=== PATIENT | female | born 1970 | race Caucasian/White ===

== ENCOUNTER 2018-08-15 01:27 | Emergency (ER) | payer OTHER ==
[~2018-08-15 01:27] MED LIST: CEPH500 PO; CIPR500 PO; CRUTCH3 USE; FLUC100 PO; HYDACE5 PO; IBUP600 PO; MUPI2TO TOP; OXYACE5T PO; PHENA200 PO; RXSULTRIDS PO; RXTRAM50 PO; SULTRIDS PO; TRAM50 PO; VALACYCLOVIR1000 MG PO; Zovirax400 MG PO
[2018-08-15 06:58] LABS: Anion Gap 9 mmol/L (6-16); Blood Urea Nitrogen 8 mg/dL (8-24); Bun/Creatinine Ratio 13.6 (12.0-20.0); CO2, Blood 22 mmol/L (21-32); Chloride, Blood 107 mmol/L (98-108); Creatinine, Blood 0.59 mg/dL (0.40-1.00); Ethanol (Alcohol), Blood, Med <3 mg/dL; Glomerular Filtration Rate >60 (60-); Glucose, Blood 95 mg/dL (70-99); Potassium, Blood 3.5 mmol/L (3.5-5.5); Sodium, Blood 138 mmol/L (136-145); Troponin I <0.015 ng/mL (0.000-0.040)
[2018-08-15 06:59] LABS: BASOPHILS ABSOLUTE AUTO 0.02 K/mm3 (0.00-0.23); BASOPHILS PERCENT AUTO 0 % (0-2); EOSINOPHILS PERCENT AUTO 1 % (0-6); Hematocrit 39.4 % (33.0-51.0); Hemoglobin 12.9 g/dL (11.5-16.0); IMMATURE GRAN ABSOLUTE AUTO 0.02 K/mm3 (0.00-0.10); IMMATURE GRAN PERCENT AUTO 0 % (0-1); LYMPHOCYTES ABSOLUTE AUTO 2.12 K/mm3 (0.84-5.20); LYMPHOCYTES PERCENT AUTO 21 % (21-46); MONOCYTES ABSOLUTE AUTO 0.63 K/mm3 (0.16-1.47); MONOCYTES PERCENT AUTO 6 % (4-13); Mean Corpuscular HGB 30.6 pg (26.0-34.0); Mean Corpuscular HGB Conc 32.7 g/dL (31.5-36.5); Mean Corpuscular Volume 94 fL (80-100); Mean Platelet Volume 9.1 fL (9.1-12.4); NEUTROPHILS ABSOLUTE AUTO 7.45 K/mm3 (1.96-9.15); NEUTROPHILS PERCENT AUTO 72 % (41-73); Platelet Count 373 K/mm3 (150-400); RDW Coefficient Variation 12.5 % (11.7-14.2); RDW Standard Deviation 43.4 fL (35.1-46.3); Red Blood Cell Count 4.21 M/mm3 (3.80-5.20); White Blood Cell Count 10.34 K/mm3 (4.00-11.30)
== END 2018-08-15 05:50 | disposition home or self-care (01) ==
LOC: ER 01:27
PROVIDERS: Emergency Medicine
DX: I10 Essential (primary) hypertension (principal)
CPT/HCPCS: 74176; 80048; 83690; 84484; 85025; 99284-25; G0480

== ENCOUNTER 2018-12-12 22:47 | Emergency (ER) | payer OTHER ==
[~2018-12-12] VITALS: Ht 167.6 cm; Wt 59.0 kg
[2018-12-13] MEDS ORDERED: Doxycycline Hy100 MG PO (04:05)
== END 2018-12-13 05:08 | disposition home or self-care (01) ==
LOC: ER 22:47
DX: L03.114 Cellulitis of left upper limb (principal); Z88.5 Allergy status to narcotic agent; Z79.899 Other long term (current) drug therapy; F17.210 Nicotine dependence, cigarettes, uncomplicated
CPT/HCPCS: 73080; 93971; 99284-25; A9270-GY

== ENCOUNTER 2019-01-01 11:22 | Emergency (ER) | payer OTHER ==
[~2019-01-01] VITALS: Ht 167.6 cm; Wt 59.0 kg
[~2019-01-01 11:22] MED LIST changes: +Doxycycline Hy100 MG PO
[2019-01-01] MEDS ORDERED: NAPR550 PO (15:30)
== END 2019-01-01 15:40 | disposition home or self-care (01) ==
LOC: ER 11:22
DX: I72.1 Aneurysm of artery of upper extremity (principal); Z88.5 Allergy status to narcotic agent; F17.210 Nicotine dependence, cigarettes, uncomplicated
CPT/HCPCS: 76882; 99283-25

== ENCOUNTER 2019-01-02 16:51 | Observation (INO) | payer OTHER ==
[~2019-01-02 16:51] MED LIST changes: +NAPR550 PO
--- NOTE | 2019-01-02 17:51 | NUR ---
pt arrived to pcu 8 via ambulation, she is a/ox3, flat affect, pleasant and cooperative with care, follows commands well, states she had an injury to her left arm that is swollen, red, and very painful, arm in a sling, denies numbness or tingling to fingers and can move them without diff, lungs are clear t/o, resp even and unlabored, no cough noted, hrr, tele in place running sr per monitor, see strip, no edema noted, ppp+2, cap refill <3sec, vs stable, afebrile, will place iv to right arm, skin c/w/d, except left upper arm, maew, except left arm, florencio, call light in reach. oriented to room layout call system.
--- NOTE | 2019-01-02 18:15 | NUR ---
heart center nurse here to take her to quality lab technician, consents have been signed, 18g was placed to rac by Sandie GUIDO, pt became very tearful when she was being wheeled out, attempted to offer reassurance, but was unable to stop crying.
--- NOTE | 2019-01-02 22:08 | NUR ---
ASSUMED CARE OF PATIENT AT APPROXIMATELY 1910 FROM [facility]. PATIENT ARRIVED TO UNIT VIA PCU STRETCHER. TELE PLACED; NSR ON TELE. PATIENT REPORTS INTIALLY SHE HAS NOT PAIN BUT LATER REPORTS HE HAS PAIN IN HER LEFT ARM ABOVE THE ELBOW AT A 5/10; PATIENT TEARFUL AT TIMES; NO PAIN MEDICATIONS ORDERED AND NO DVT PROPHYLAXIS; CALLED DR. NIX; ORDERS FOR TYLENOL RECIEVED AND A PRN SLEEP AID IF NEEDED; SLING FOR LEFT ARM; AND PATIENT CAN SOAK LEFT ARM FOR PAIN RELIEF; DR. NIX ALSO REPORTED HE WILL NOT BE IN TOMORROW AND ANOTHER DR WILL D/C PATIENT. NO OTHER PAIN MEDICATION TO BE GIVEN; NO FURTHER ORDERS GIVEN. PATIENT WAS FLAT UNTIL 2100; HOB TO 25-30% TO EAT DINNER; TOLERATED WELL. LEFT ARM HAS LUMP THAT WAS PRESENT WHEN CARE WAS ASSUMED AND PATIENT REPORTS HAS BEEN PRESENT SINCE ARRIVAL TO HOSPITAL. FINGERS AND HAND ON LEFT SIDE SLIGHTLY SWOLLEN; UNCHANGED FROM WHEN ASSUMED CARE FROM HEART CENTER. ACCESS THROUGH RIGHT FEMORAL; DRESSING C/D/I; NO S/S OF BLEEDING, HEMATOMA OR BRUISING NOTED. PATIENT EDUCATED NOT TO STAND OR SIT UP WITHOUT STAFF. OXYGEN SATURATON ABOVE 90% ON ROOM AIR. PIV S/L. PATIENT CURRENTLY RESTING IN BED; CALL LIGHT IN REACH; BED IN LOWEST POSISTION; BED ALARM ON; WILL CONTINUE TO MONITOR AND ASSESS UNTIL END OF SHIFT.
--- NOTE | 2019-01-03 06:00 | NUR ---
PATIENT AMBULATED WITH ANOTHER RN NEO Montero AND PCT GEOFFREY Lau WHEN THIS RN WAS ON LUNCH; NO CHANGES TO GROIN SITE. PATIENT SLEPT ABOUT TEN HOURS. VSS. NO OTHER ACUTE CHANGES TO REPORT. WILL CONTINUE TO MONITOR AND ASSESS UNTIL END OF SHIFT.
--- NOTE | 2019-01-03 07:46 | NUR ---
pt laying in bed with eyes closed, responds to nurse, but is not making any effort to make eye contact, or fully wake up, vs stable, groin site is clear and soft, left arm is less swollen, she reports is less painful, lungs are clear t/o, resp even and unlabored, no cough noted, hrr, tele in place running sr per monitor, see strip, no andrés noted, except some swelling to elbow area of left arm but is less swollen than yesterday, florencio irwin call light in reach.
[2019-01-03] MEDS ORDERED: Acetaminophen650 M1 PO (10:23)
[2019-01-03] MEDS ORDERED: NAPR550 PO (10:24)
[2019-01-03] MEDS ORDERED: ASPI81CH PO (10:25)
[2019-01-03] MEDS ORDERED: CLOP75 PO (10:26)
--- NOTE | 2019-01-03 12:08 | NUR ---
PT HAS BEEN DISCHARGED TO HOME, CHARGE NURSE WENT OVER INSTRUCTIONS WITH HER, SHE VERBALIZED UNDERSTANDING, [facility] MED[facility], IV REMOVED INTACT. LEFT VIA AMBULATION WITH NURSE IN ATTENDENCE.
== END 2019-01-03 11:50 | disposition home or self-care (01) ==
LOC: PCU 16:51
PROVIDERS: ADMIT Radiology Diagnostic Radiology
DX: I72.1 Aneurysm of artery of upper extremity (principal); S45.192A Other specified injury of brachial artery, left side, initial encounter; X58.XXXA Exposure to other specified factors, initial encounter; Z88.5 Allergy status to narcotic agent
CPT/HCPCS: 37236; 75710; 99152; 99153; A9270; C1725; C1760; C1769; C1874; C1894; G0378; J0360; J1644; J2250; J3010; J7030; Q9967

== ENCOUNTER 2020-08-29 19:10 | Emergency (ER) | payer OTHER ==
[~2020-08-29] VITALS: Ht 167.6 cm; Wt 61.2 kg
[~2020-08-29 19:10] MED LIST changes: +ASPI81CH PO; +Acetaminophen650 M1 PO; +CLOP75 PO
[2020-08-29] MEDS ORDERED: Cyclobenzaprine5 MG PO (20:25)
== END 2020-08-29 20:34 | disposition home or self-care (01) ==
LOC: ER 19:10
DX: M54.32 Sciatica, left side (principal); F17.210 Nicotine dependence, cigarettes, uncomplicated; Z88.5 Allergy status to narcotic agent; Z79.02 Long term (current) use of antithrombotics/antiplatelets; Z79.82 Long term (current) use of aspirin; Z79.899 Other long term (current) drug therapy
CPT/HCPCS: 99283; A9270

== ENCOUNTER 2020-09-18 18:43 | Emergency (ER) | payer OTHER ==
[~2020-09-18] VITALS: Ht 167.6 cm; Wt 61.2 kg
[~2020-09-18 18:43] MED LIST changes: +Cyclobenzaprine5 MG PO
[2020-09-18 21:06] LABS: BASOPHILS ABSOLUTE AUTO 0.02 K/mm3 (0.00-0.23); BASOPHILS PERCENT AUTO 0 % (0-2); EOSINOPHILS ABSOLUTE AUTO 0.23 K/mm3 (0.00-0.68); EOSINOPHILS PERCENT AUTO 3 % (0-6); Hematocrit 37.7 % (33.0-51.0); Hemoglobin 12.5 g/dL (11.5-16.0); IMMATURE GRAN ABSOLUTE AUTO 0.01 K/mm3 (0.00-0.10); IMMATURE GRAN PERCENT AUTO 0 % (0-1); LYMPHOCYTES ABSOLUTE AUTO 2.34 K/mm3 (0.84-5.20); LYMPHOCYTES PERCENT AUTO 32 % (21-46); MONOCYTES ABSOLUTE AUTO 0.76 K/mm3 (0.16-1.47); MONOCYTES PERCENT AUTO 10 % (4-13); Mean Corpuscular HGB 29.5 pg (26.0-34.0); Mean Corpuscular HGB Conc 33.2 g/dL (31.5-36.5); Mean Corpuscular Volume 89 fL (80-100); Mean Platelet Volume 8.8 fL (9.1-12.4); NEUTROPHILS ABSOLUTE AUTO 4.05 K/mm3 (1.96-9.15); NEUTROPHILS PERCENT AUTO 55 % (41-73); Platelet Count 369 K/mm3 (150-400); RDW Coefficient Variation 12.2 % (11.7-14.2); RDW Standard Deviation 39.7 fL (35.1-46.3); Red Blood Cell Count 4.24 M/mm3 (3.80-5.20); White Blood Cell Count 7.41 K/mm3 (4.00-11.30)
[2020-09-18 21:24] LABS: Alanine Aminotransfer (ALT/SGP 125 U/L (12-78); Albumin, Blood 3.5 g/dL (3.4-5.0); Albumin/Globulin Ratio 0.9 (0.8-1.8); Alk Phos 79 U/L (50-136); Anion Gap 5 mmol/L (6-16); Aspartate Aminotrans (AST/SGOT 68 U/L (12-37); Bilirubin, Total 0.3 mg/dL (0.1-1.0); Blood Urea Nitrogen 14 mg/dL (8-24); Bun/Creatinine Ratio 18.7 (12.0-20.0); CO2, Blood 27 mmol/L (21-32); Calcium, Blood 8.6 mg/dL (8.5-10.1); Chloride, Blood 108 mmol/L (98-108); Creatinine, Blood 0.75 mg/dL (0.40-1.00); Globulin, Blood 4.1 g/dL (2.2-4.0); Glomerular Filtration Rate >60 (60-); Glucose, Blood 132 mg/dL (70-99); Potassium, Blood 3.6 mmol/L (3.5-5.5); Sodium, Blood 140 mmol/L (136-145); Total Protein, Blood 7.6 g/dL (6.4-8.2)
[2020-09-18 23:13] LABS: CPK Creatine Kinase 58 U/L (26-193)
== END 2020-09-18 23:43 | disposition home or self-care (01) ==
LOC: ER 18:43
PROVIDERS: Physician Assistant
DX: M79.662 Pain in left lower leg (principal); F17.210 Nicotine dependence, cigarettes, uncomplicated; Z88.5 Allergy status to narcotic agent; Z79.899 Other long term (current) drug therapy
CPT/HCPCS: 36415; 80053; 82550; 85025; 93005; 93010; 93971; 99284-25

== ENCOUNTER 2022-05-11 23:06 | Emergency (ER) | payer OTHER ==
[~2022-05-11] VITALS: Ht 167.6 cm; Wt 59.0 kg
[2022-05-12] MEDS ORDERED: Morphine Sulfat15 MG PO (02:08)
[2022-05-12] MEDS ORDERED: IBUP800 PO (02:08)
[2022-05-12] MEDS ORDERED: ONDA4ODT MM (02:24)
== END 2022-05-12 03:20 | disposition home or self-care (01) ==
LOC: ER 23:06
DX: S52.612A Displaced fracture of left ulna styloid process, initial encounter for closed fracture (principal); S52.502A Unspecified fracture of the lower end of left radius, initial encounter for closed fracture; F17.210 Nicotine dependence, cigarettes, uncomplicated; W01.0XXA Fall on same level from slipping, tripping and stumbling without subsequent striking against object, initial encounter
CPT/HCPCS: 73100; 73110; J1170; J2405

== ENCOUNTER 2022-06-02 19:12 | Inpatient (IN) | payer OTHER ==
[~2022-06-02] VITALS: Ht 172.7 cm; Wt 68.7 kg
[~2022-06-02 19:12] MED LIST changes: +IBUP800 PO; +Morphine Sulfat15 MG PO; +ONDA4ODT MM
[2022-06-02 20:32] LABS: Influenza B, PCR NEGATIVE (NEGATIVE); Resp Syncytial Virus, PCR NEGATIVE (NEGATIVE); SARS-Cov-2 (COVID-19) PCR, MMC NEGATIVE (NEGATIVE)
[2022-06-02 20:39] LABS: Influenza A, PCR POSITIVE (NEGATIVE)
[2022-06-02 20:58] LABS: BASOPHILS ABSOLUTE AUTO 0.03 K/mm3 (0.00-0.23); BASOPHILS PERCENT AUTO 0 % (0-2); EOSINOPHILS ABSOLUTE AUTO 0.01 K/mm3 (0.00-0.68); EOSINOPHILS PERCENT AUTO 0 % (0-6); Hematocrit 40.8 % (33.0-51.0); Hemoglobin 13.2 g/dL (11.5-16.0); IMMATURE GRAN ABSOLUTE AUTO 0.03 K/mm3 (0.00-0.10); IMMATURE GRAN PERCENT AUTO 0 % (0-1); LYMPHOCYTES ABSOLUTE AUTO 0.78 K/mm3 (0.84-5.20); LYMPHOCYTES PERCENT AUTO 9 % (21-46); MONOCYTES PERCENT AUTO 12 % (4-13); Mean Corpuscular HGB 30.3 pg (26.0-34.0); Mean Corpuscular HGB Conc 32.4 g/dL (31.5-36.5); Mean Corpuscular Volume 94 fL (80-100); Mean Platelet Volume 9.9 fL (9.1-12.4); NEUTROPHILS ABSOLUTE AUTO 6.53 K/mm3 (1.96-9.15); NEUTROPHILS PERCENT AUTO 78 % (41-73); Platelet Count 426 K/mm3 (150-400); RDW Coefficient Variation 13.6 % (11.7-14.2); RDW Standard Deviation 45.6 fL (35.1-46.3); Red Blood Cell Count 4.35 M/mm3 (3.80-5.20); White Blood Cell Count 8.38 K/mm3 (4.00-11.30)
[2022-06-02 21:24] LABS: Albumin, Blood 2.9 g/dL (3.4-5.0); Albumin/Globulin Ratio 0.7 (0.8-1.8); Bilirubin, Total 0.9 mg/dL (0.1-1.0); Calcium, Blood 8.7 mg/dL (8.5-10.1); Creatinine, Blood 0.88 mg/dL (0.40-1.00); Globulin, Blood 4.3 g/dL (2.2-4.0); Potassium, Blood 4.5 mmol/L (3.5-5.5); Total Protein, Blood 7.2 g/dL (6.4-8.2)
[2022-06-03 05:51] LABS: BASOPHILS ABSOLUTE AUTO 0.04 K/mm3 (0.00-0.23); BASOPHILS PERCENT AUTO 1 % (0-2); EOSINOPHILS PERCENT AUTO 0 % (0-6); Hematocrit 35.8 % (33.0-51.0); Hemoglobin 11.8 g/dL (11.5-16.0); IMMATURE GRAN ABSOLUTE AUTO 0.02 K/mm3 (0.00-0.10); IMMATURE GRAN PERCENT AUTO 0 % (0-1); LYMPHOCYTES ABSOLUTE AUTO 1.06 K/mm3 (0.84-5.20); LYMPHOCYTES PERCENT AUTO 14 % (21-46); MONOCYTES ABSOLUTE AUTO 0.98 K/mm3 (0.16-1.47); MONOCYTES PERCENT AUTO 13 % (4-13); Mean Corpuscular HGB 30.1 pg (26.0-34.0); Mean Corpuscular Volume 91 fL (80-100); Mean Platelet Volume 9.6 fL (9.1-12.4); NEUTROPHILS ABSOLUTE AUTO 5.61 K/mm3 (1.96-9.15); NEUTROPHILS PERCENT AUTO 73 % (41-73); Platelet Count 404 K/mm3 (150-400); RDW Coefficient Variation 13.8 % (11.7-14.2); RDW Standard Deviation 45.1 fL (35.1-46.3); Red Blood Cell Count 3.92 M/mm3 (3.80-5.20); White Blood Cell Count 7.71 K/mm3 (4.00-11.30)
[2022-06-03 06:21] LABS: Albumin, Blood 2.7 g/dL (3.4-5.0); Albumin/Globulin Ratio 0.7 (0.8-1.8); Bun/Creatinine Ratio 16.3 (12.0-20.0); Calcium, Blood 8.2 mg/dL (8.5-10.1); Creatinine, Blood 0.92 mg/dL (0.40-1.00); Globulin, Blood 3.8 g/dL (2.2-4.0); Potassium, Blood 4.4 mmol/L (3.5-5.5); Total Protein, Blood 6.5 g/dL (6.4-8.2)
--- NOTE | 2022-06-03 08:00 | NUR ---
pt laying in bed asleep, wakes easily, states she has pain with cough, using 2 liters for comfort, she feels sob at times, lungs are tight and wheezing t/o, resp even and unlabored, no cough noted, hrr, tele in place running sr to st per monitor in the low 100's, no edema noted, ppp+2, cap refill<3sec, vs stable, afebrile, iv to right ac, site is clear and patent, btx4, abd flat soft nontender, voids without diff, skin c/w/d, maew, florencio, call light in reach.
--- NOTE | 2022-06-03 18:21 | NUR ---
pt has been sleeping when not being disturbed, no acute changes this shift. family has been in room, call light in reach.
--- NOTE | 2022-06-03 18:42 | NUR ---
pt more awake this evening, looks better, she reports feeling a bit better, have bsc set up for obtaining a urine sample, s.o. in room with her most of the day, call light in reach, denies further needs at this time.
[2022-06-03 21:02] LABS: U Amphetamine Screen DETECTED; U Barbituate Screen Not Detected; U Benzodiazapine Screen Not Detected; U Buprenorphine Screen Not Detected; U Cannabinoids Screen Not Detected; U Cocaine Screen Not Detected; U Methadone Screen Not Detected; U Methamphetamine Screen DETECTED; U Opiates Screen Not Detected; U Oxycodone Screen Not Detected; U Phencyclidine Screen Not Detected; U Propoxyphene Screen Not Detected
--- NOTE | 2022-06-04 04:01 | NUR ---
SHIFT SUMMARY 51 YR F ADMITTED ON 06/02/22 FOR CHF. FULL CODE. NO ACUTE CHANGES THIS SHIFT. PT HAS SLEPT FOR MOST OF THIS SHIFT AND HAS ONLY WOKE UP FOR MEDS AND TO USE THE BSC. URINE SAMPLE WAS OBTAINED AND SENT TO LAB . RESULTS ARE POSITIVE FOR AMPHETAMINES AND METHAMPHETAMINE. BED IS IN LOW POSITION AND CALL LIGHT WITHIN REACH.
[2022-06-04 05:05] LABS: BASOPHILS ABSOLUTE AUTO 0.02 K/mm3 (0.00-0.23); BASOPHILS PERCENT AUTO 0 % (0-2); EOSINOPHILS ABSOLUTE AUTO 0.03 K/mm3 (0.00-0.68); EOSINOPHILS PERCENT AUTO 1 % (0-6); Hematocrit 36.9 % (33.0-51.0); Hemoglobin 12.1 g/dL (11.5-16.0); IMMATURE GRAN ABSOLUTE AUTO 0.02 K/mm3 (0.00-0.10); IMMATURE GRAN PERCENT AUTO 0 % (0-1); LYMPHOCYTES ABSOLUTE AUTO 1.32 K/mm3 (0.84-5.20); LYMPHOCYTES PERCENT AUTO 22 % (21-46); MONOCYTES ABSOLUTE AUTO 0.76 K/mm3 (0.16-1.47); MONOCYTES PERCENT AUTO 13 % (4-13); Mean Corpuscular HGB 29.6 pg (26.0-34.0); Mean Corpuscular HGB Conc 32.8 g/dL (31.5-36.5); Mean Corpuscular Volume 90 fL (80-100); Mean Platelet Volume 9.5 fL (9.1-12.4); NEUTROPHILS ABSOLUTE AUTO 3.78 K/mm3 (1.96-9.15); NEUTROPHILS PERCENT AUTO 64 % (41-73); Platelet Count 407 K/mm3 (150-400); RDW Coefficient Variation 14.1 % (11.7-14.2); RDW Standard Deviation 45.1 fL (35.1-46.3); Red Blood Cell Count 4.09 M/mm3 (3.80-5.20); White Blood Cell Count 5.93 K/mm3 (4.00-11.30)
[2022-06-04 05:35] LABS: Albumin, Blood 2.6 g/dL (3.4-5.0); Albumin/Globulin Ratio 0.7 (0.8-1.8); Bilirubin, Total 0.5 mg/dL (0.1-1.0); Bun/Creatinine Ratio 17.2 (12.0-20.0); Calcium, Blood 7.9 mg/dL (8.5-10.1); Creatinine, Blood 0.87 mg/dL (0.40-1.00); Globulin, Blood 3.5 g/dL (2.2-4.0); Potassium, Blood 3.3 mmol/L (3.5-5.5); Total Protein, Blood 6.1 g/dL (6.4-8.2)
--- NOTE | 2022-06-04 18:33 | NUR ---
EVENINGNOTE PT RESTING ALL DAY. EASILY AWAKENS AND IS COOPERATIVE WITH CARE. SHOWER HAS BEEN SET UP FOR HER ALL DAY. SHE HAS PUT IT OFF. STARTED ON METPROLOL FOR HEART RATE CONTROL. HER HR WAS TO HIGH FOR AN ECHO. HEART RATE DECREASED INTO THE LOW 90'S EARLY AFTERNOON. ATTEMPTED TO REACH THE SALESPERSON HANDBAGS. UNABLE TO REACH HER. CALLED NURSING ENVIRONMENTAL HEALTH AND SAFETY LEADER. PT HAS VOIDED 3000ML TODAY PER BSC. SHE STATED THAT IT HURTS TO BREATH WHEN SHE'S UP. SHE WAS VAGUE IN DESCRIBING THE NATURE OF THE "PAIN" OR LOCATION.AUSCULTATION OF HER LUNGS WAS COURSE T/O AND DIM IN THE BASES BOTH POSTERIOR/ANTERIOR EAGLE. SR/ST WITH BBB. SKIN PALE, DUSKY LOOKING. SKIN WARM AND DRY. RA. VOICE CLEAR, STRONG. LEFT UE CAST DRY AND INTACT. CAP REILL TO FINGERS BRISK. SHE DENIED DISCOMFORT FROM THE FRACTURE. CONTINUE POC.
[2022-06-04 23:40] LABS: Magnesium, Blood 1.7 mg/dL (1.6-2.4); Potassium, Blood 3.6 mmol/L (3.5-5.5)
--- NOTE | 2022-06-05 07:27 | NUR ---
A/OX4; CALM AND COOPERATIVE. IND IN ROOM. BOUCHRA CUEVAS. TELE: BBB WITH INVERTED T-WAVE AND HR IN 90s. 16 BEATS V-TACH AT 2300 (PATIENT WAS ASLEEP); REPORTED TO MD. STAT K AND MG CHECKED PER ORDERS; LABWORK WNL. VSS AT THIS TIME. DENIES CHEST PAIN. FLU + PRECAUTIONS MAINTAINED. LUNGS TIGHT /DIMINISHED WITH EXP WHEEZE IN UPPER LOBES. SPO2 LOW 90s ON ROOM AIR. SLEEP PROMOTED. CALL LIGHT IN REACH; ENCOURAGED TO MAKE NEEDS KNOWN.
--- NOTE | 2022-06-05 16:52 | NUR ---
SHIFT SUMMARY: PATIENT A&OX4. HAS FLAT AFFECT. PLEASANT AND COOPERATIVE c CARE. USES CALL LIGHT APPROPRIATELY AND ABLE TO ADVOCATE FOR HER NEEDS. DENIES CP/CHEST DISCOMFORT. PATIENT ON TELE, AND HAS BEEN SR IN HIGH 80'S BPM. DENIES SOB. PATIENT ON RA c SPO2 ABOVE 92% T/O SHIFT. LUNGS HAS INS. WHEEZES T/O TO AUSCULTATION. AMBULATES TO BATHROOM AND BACK IN BED INDEPENDENTLY. PATIENT HAS BEEN RESTING IN BED T/O SHIFT. VITAL SIGNS REVIEWED. IV TO VEDA SALINE LOCKED. CALL LIGHT IN REACH.
--- NOTE | 2022-06-06 06:04 | NUR ---
A/OX4; CALM AND COOPERATIVE. IND IN ROOM. CAST LUE. IV RUE. C/O 01/18 LEFT ELBOW PAIN (REQUESTING CAST REMOVAL); PRN TYLENOL GIVEN. NOT HELPFUL PER PATIENT; CALLED MD FOR PAIN MED REQUEST AND TO REPORT HTN (S/P SCHEDULED METOPROLOL ADMINISTRATION) BP 148/109 WITH HR OF 100. PRN HYDRALAZINE ORDER OBTAINED AND GIVEN; BP 132/85 WITH HR OF 97 AFTER ADMINISTRATION. PRN TORADOL ORDERED AND GIVEN; PAIN RELIEVED TELE: ST WITH HR 90s TO 100. FLU + PRECAUTIONS MAINTAINED. LUNGS TIGHT /DIMINISHED WITH EXP WHEEZE IN UPPER LOBES. SPO2 90s ON ROOM AIR. SLEEP PROMOTED. CALL LIGHT IN REACH; ENCOURAGED TO MAKE NEEDS KNOWN.
[2022-06-06 11:32] LABS: Albumin, Blood 2.7 g/dL (3.4-5.0); Anion Gap 6 mmol/L (6-16); Blood Urea Nitrogen 23 mg/dL (8-24); Bun/Creatinine Ratio 26.5 (12.0-20.0); CO2, Blood 26 mmol/L (21-32); Calcium, Blood 8.5 mg/dL (8.5-10.1); Chloride, Blood 107 mmol/L (98-108); Creatinine, Blood 0.87 mg/dL (0.40-1.00); Glomerular Filtration Rate 80 (60-); Glucose, Blood 112 mg/dL (70-99); Phosphorus, Blood 3.9 mg/dL (2.5-4.9); Potassium, Blood 4.2 mmol/L (3.5-5.5); Sodium, Blood 139 mmol/L (136-145)
[2022-06-06] MEDS ORDERED: Acetaminophen650 M1 PO (14:26)
[2022-06-06] MEDS ORDERED: LOSA25 PO (14:27)
[2022-06-06] MEDS ORDERED: FURO40 PO (14:28)
[2022-06-06] MEDS ORDERED: METO25 PO (14:30)
[2022-06-06] MEDS ORDERED: OSEL75CA PO (14:36)
--- NOTE | 2022-06-06 15:35 | NUR ---
NOTES/DISCHARGE SUMMARY: PATIENT A&OX4. CALM, PLEASANT AND COOPERATIVE c CARE. USES CALL LIGHT APPROPRIATELY AND ABLE TO ADVOCATE FOR HER NEEDS. NO NEW CHANGES THIS SHIFT. PATIENT STILL ON ISOLATION DROPLET FOR FLU. PATIENT DENIES CP/CHEST DISCOMFORT. PATIENT ON TELE, SR IN THE 100'S BPM PER FLESHING MACHINE OPERATORMINA KAPLAN. DENIES SOB. PATIENT ON RA c SPO2 ABOVE 95%. LUNGS CLEAR T/O TO AUSCULTATION. NO FEVER. RECEIVED SCHEDULED MEDS THIS SHIFT. IV TO VEDA WAS DC'D. PATIENT DISCHARGE HOME. DISCHARGE INSTRUCTIONS PACKET GIVEN TO PATIENT. EDUCATE PATIENT REGARDING ADMITTING DX, S/S, TX, METH USE, AND NEW PRESCRIBED MEDICATIONS. PATIENT STATED UNDERSTANDING AND NO FURTHER QUESTIONS. RX WAS FAXED TO PATIENT PREFERRED PHARMACY ([facility]). ALL PATIENT PERSONAL BELONGINGS WERE SENT HOME WITH THE PATIENT. PATIENT TRANSPORTED VIA WHEELCHAIR BY DENTURE PACKER STAFF [place] TO TO PATIENT SIGNIFICANT OTHER'S VEHICLE.
== END 2022-06-06 15:20 | disposition home or self-care (01) | DRG 193 ==
LOC: ER 19:12 → MEDS 19:13 → ER 06-03 04:39 → MEDS 06-03 05:16
PROVIDERS: Family Medicine; Internal Medicine; Nurse Practitioner Acute Care; Physician Assistant; Student in an Organized Health Care Education/Training Program; ADMIT Family Medicine
DX: J10.1 Influenza due to other identified influenza virus with other respiratory manifestations (principal); I50.21 Acute systolic (congestive) heart failure; I42.0 Dilated cardiomyopathy; I42.7 Cardiomyopathy due to drug and external agent; J91.8 Pleural effusion in other conditions classified elsewhere; F15.10 Other stimulant abuse, uncomplicated; F17.210 Nicotine dependence, cigarettes, uncomplicated; R77.8 Other specified abnormalities of plasma proteins; R00.0 Tachycardia, unspecified; E87.6 Hypokalemia; R94.5 Abnormal results of liver function studies; I44.7 Left bundle-branch block, unspecified; R74.01 Elevation of levels of liver transaminase levels; Z20.822 Contact with and (suspected) exposure to COVID-19; Z87.81 Personal history of (healed) traumatic fracture; Z98.890 Other specified postprocedural states; Z98.51 Tubal ligation status; I25.2 Old myocardial infarction; Z88.5 Allergy status to narcotic agent; Z79.899 Other long term (current) drug therapy; Z79.891 Long term (current) use of opiate analgesic
CPT/HCPCS: 0241U; 36415; 71046; 71260; 80053; 80069; 83735; 83880; 84132; 84484; 85025; 85379; 93005; 93010; 93306; 94640; 94664; 94760; 96361; 96374; 96375; 99285-25; A9270; G0378; G0480; J0360; J1650; J1885; J1940; J3010; J7030; Q9967

== ENCOUNTER 2022-08-04 08:00 | Emergency (ER) | payer OTHER ==
[~2022-08-04] VITALS: Ht 167.6 cm; Wt 61.2 kg
[~2022-08-04 08:00] MED LIST changes: +FURO20 PO; +FURO40 PO; +LOSA25 PO; +METO25 PO; +OSEL75CA PO
[2022-08-04 09:40] LABS: BASOPHILS ABSOLUTE AUTO 0.05 K/mm3 (0.00-0.23); BASOPHILS PERCENT AUTO 0 % (0-2); EOSINOPHILS ABSOLUTE AUTO 0.13 K/mm3 (0.00-0.68); EOSINOPHILS PERCENT AUTO 1 % (0-6); Hematocrit 37.2 % (33.0-51.0); Hemoglobin 12.1 g/dL (11.5-16.0); IMMATURE GRAN ABSOLUTE AUTO 0.05 K/mm3 (0.00-0.10); IMMATURE GRAN PERCENT AUTO 0 % (0-1); LYMPHOCYTES ABSOLUTE AUTO 2.28 K/mm3 (0.84-5.20); LYMPHOCYTES PERCENT AUTO 16 % (21-46); MONOCYTES ABSOLUTE AUTO 1.61 K/mm3 (0.16-1.47); MONOCYTES PERCENT AUTO 11 % (4-13); Mean Corpuscular HGB 28.5 pg (26.0-34.0); Mean Corpuscular HGB Conc 32.5 g/dL (31.5-36.5); Mean Corpuscular Volume 88 fL (80-100); Mean Platelet Volume 9.3 fL (9.1-12.4); NEUTROPHILS ABSOLUTE AUTO 10.63 K/mm3 (1.96-9.15); NEUTROPHILS PERCENT AUTO 72 % (41-73); Platelet Count 510 K/mm3 (150-400); RDW Coefficient Variation 13.9 % (11.7-14.2); RDW Standard Deviation 44.6 fL (35.1-46.3); Red Blood Cell Count 4.25 M/mm3 (3.80-5.20); White Blood Cell Count 14.75 K/mm3 (4.00-11.30)
[2022-08-04 10:00] LABS: Influenza A, PCR NEGATIVE (NEGATIVE); Influenza B, PCR NEGATIVE (NEGATIVE); Resp Syncytial Virus, PCR NEGATIVE (NEGATIVE); SARS-Cov-2 (COVID-19) PCR, MMC NEGATIVE (NEGATIVE)
[2022-08-04 10:12] LABS: Albumin, Blood 3.1 g/dL (3.4-5.0); Albumin/Globulin Ratio 0.7 (0.8-1.8); Bilirubin, Total 0.8 mg/dL (0.1-1.0); Bun/Creatinine Ratio 22.6 (12.0-20.0); Creatinine, Blood 0.84 mg/dL (0.40-1.00); Globulin, Blood 4.4 g/dL (2.2-4.0); Potassium, Blood 4.1 mmol/L (3.5-5.5); Total Protein, Blood 7.5 g/dL (6.4-8.2)
[2022-08-04 10:26] LABS: Source, Urine Clean Catch
[2022-08-04 10:31] LABS: Appearance, Urine Clear (Clear); Bilirubin, Urine Neg (Neg); Blood, Urine Neg (Neg); Color, Urine Yellow (P-Yellow); Glucose Qualitative, Urine Neg (Neg); Ketones, Urine Neg (Neg); Leukocyte Esterase, Urine 1+ (Neg); Nitrite, Urine Pos (Neg); Protein, Urine 1+ (Neg); Urobilinogen, Urine NORM (Normal)
[2022-08-04 10:47] LABS: U Amphetamine Screen DETECTED; U Barbituate Screen Not Detected; U Benzodiazapine Screen Not Detected; U Buprenorphine Screen Not Detected; U Cannabinoids Screen Not Detected; U Cocaine Screen Not Detected; U Methadone Screen Not Detected; U Methamphetamine Screen DETECTED; U Opiates Screen Not Detected; U Oxycodone Screen Not Detected; U Phencyclidine Screen Not Detected; U Propoxyphene Screen Not Detected
[2022-08-04] MEDS ORDERED: ALBU90OI INH (10:49)
[2022-08-04] MEDS ORDERED: BENZ100A PO (10:49)
[2022-08-04] MEDS ORDERED: PRED20 PO (10:49)
[2022-08-04 10:52] LABS: Bacteria Many /hpf; Squamous Epithelial Cells Few /hpf (Few); White Blood Cells, Urine 25-50 /hpf (0-5)
[2022-08-04] MEDS ORDERED: CEPH500 PO (14:05)
== END 2022-08-04 11:41 | disposition home or self-care (01) ==
LOC: ER 08:00
PROVIDERS: Emergency Medicine
DX: J40 Bronchitis, not specified as acute or chronic (principal); I42.0 Dilated cardiomyopathy; F15.11 Other stimulant abuse, in remission; N39.0 Urinary tract infection, site not specified; I50.21 Acute systolic (congestive) heart failure; F17.210 Nicotine dependence, cigarettes, uncomplicated; Z88.5 Allergy status to narcotic agent; Z79.899 Other long term (current) drug therapy; Z20.822 Contact with and (suspected) exposure to COVID-19
CPT/HCPCS: 0241U; 36415; 71045; 80053; 81001; 83880; 85025; 87077; 87086; 87186; 93005; 93010; J7030

== ENCOUNTER 2022-08-08 06:34 | Emergency (ER) | payer OTHER ==
[~2022-08-08] VITALS: Ht 167.6 cm; Wt 63.5 kg
[~2022-08-08 06:34] MED LIST changes: +ALBU90OI INH; +BENZ100A PO; +PRED20 PO
[2022-08-08 07:39] LABS: Source, Urine Clean Catch
[2022-08-08 07:43] LABS: Appearance, Urine Clear (Clear); Bilirubin, Urine Neg (Neg); Blood, Urine Neg (Neg); Color, Urine Yellow (P-Yellow); Glucose Qualitative, Urine Neg (Neg); Ketones, Urine Neg (Neg); Leukocyte Esterase, Urine 1+ (Neg); Nitrite, Urine Neg (Neg); Protein, Urine 2+ (Neg); Urobilinogen, Urine NORM (Normal)
[2022-08-08 07:55] LABS: Bacteria Few /hpf; Red Blood Cells, Urine 0-2 /hpf (0-2); Squamous Epithelial Cells Few /hpf (Few); Transitional Epithelial Cells Few /hpf (0-Rare)
[2022-08-08 07:57] LABS: U Amphetamine Screen DETECTED; U Barbituate Screen Not Detected; U Benzodiazapine Screen Not Detected; U Buprenorphine Screen Not Detected; U Cannabinoids Screen Not Detected; U Cocaine Screen Not Detected; U Methadone Screen Not Detected; U Methamphetamine Screen DETECTED; U Opiates Screen Not Detected; U Oxycodone Screen Not Detected; U Phencyclidine Screen Not Detected; U Propoxyphene Screen Not Detected
[2022-08-08 08:19] LABS: Albumin, Blood 2.8 g/dL (3.4-5.0); Albumin/Globulin Ratio 0.7 (0.8-1.8); Bilirubin, Total 0.7 mg/dL (0.1-1.0); Calcium, Blood 8.4 mg/dL (8.5-10.1); Creatinine, Blood 0.8 mg/dL (0.40-1.00); Potassium, Blood 5.1 mmol/L (3.5-5.5); Total Protein, Blood 6.8 g/dL (6.4-8.2)
== END 2022-08-08 09:35 | disposition home or self-care (01) ==
LOC: ER 06:34
PROVIDERS: Emergency Medicine
DX: R60.9 Edema, unspecified (principal); F15.10 Other stimulant abuse, uncomplicated; N39.0 Urinary tract infection, site not specified; B96.20 Unspecified Escherichia coli [E. coli] as the cause of diseases classified elsewhere; Z88.5 Allergy status to narcotic agent; Z79.899 Other long term (current) drug therapy; Z79.52 Long term (current) use of systemic steroids; I25.2 Old myocardial infarction; I50.21 Acute systolic (congestive) heart failure; F17.210 Nicotine dependence, cigarettes, uncomplicated
CPT/HCPCS: 36415; 71045; 80053; 81001; 83880; 87086; 96374; 99284-25; J1940

== ENCOUNTER 2022-10-05 13:46 | Emergency (ER) | payer OTHER ==
[~2022-10-05] VITALS: Ht 165.1 cm; Wt 61.2 kg
[2022-10-05 14:10] VITALS: BP 179/103
[2022-10-05] MEDS ORDERED: Lasix20 MG PO (14:14)
[2022-10-05] MEDS ORDERED: ELIQUIS5 M2 PO (14:14)
[2022-10-05] MEDS ORDERED: LOSARTAN POTAS100 M1 PO (14:14)
[2022-10-05] MEDS ORDERED: Coreg25 MG PO (14:14)
[2022-10-05] MEDS ORDERED: SPIR50 PO (14:14)
== END 2022-10-05 14:15 | disposition home or self-care (01) ==
LOC: ER 13:46
DX: Z76.0 Encounter for issue of repeat prescription (principal); Z88.5 Allergy status to narcotic agent; Z79.899 Other long term (current) drug therapy; Z79.52 Long term (current) use of systemic steroids; I25.2 Old myocardial infarction; I50.21 Acute systolic (congestive) heart failure; F17.210 Nicotine dependence, cigarettes, uncomplicated
CPT/HCPCS: 99281

== ENCOUNTER 2022-12-11 16:55 | Emergency (ER) | payer OTHER ==
[~2022-12-11] VITALS: Ht 165.1 cm; Wt 61.2 kg
[~2022-12-11 16:55] MED LIST changes: +Coreg25 MG PO; +ELIQUIS5 M2 PO; +LOSARTAN POTAS100 M1 PO; +Lasix20 MG PO; +SPIR50 PO
[2022-12-11 17:07] VITALS: BP 178/117
[2022-12-11] MEDS ORDERED: Coreg25 MG PO (17:12)
[2022-12-11] MEDS ORDERED: Aldactone50 MG PO (17:12)
[2022-12-11] MEDS ORDERED: ELIQUIS5 M2 PO (17:12)
[2022-12-11] MEDS ORDERED: LOSA50 PO (17:12)
[2022-12-11] MEDS ORDERED: Lasix20 MG PO (17:12)
== END 2022-12-11 17:14 | disposition home or self-care (01) ==
LOC: ER 16:55
DX: Z76.0 Encounter for issue of repeat prescription (principal); I25.2 Old myocardial infarction; I50.21 Acute systolic (congestive) heart failure; F17.210 Nicotine dependence, cigarettes, uncomplicated; Z88.5 Allergy status to narcotic agent; Z79.01 Long term (current) use of anticoagulants; Z79.52 Long term (current) use of systemic steroids; Z79.899 Other long term (current) drug therapy
CPT/HCPCS: 99281

== ENCOUNTER 2024-02-03 01:44 | Emergency (ER) | payer OTHER ==
[~2024-02-03] VITALS: Ht 165.1 cm; Wt 69.4 kg
[~2024-02-03 01:44] MED LIST changes: +Aldactone50 MG PO; +LOSA50 PO
[2024-02-03 02:03] VITALS: BP 141/95
[2024-02-03] MEDS ORDERED: Ibuprofen 600 MG Tab PO ONE (05:00)
[2024-02-03] MEDS ORDERED: AMOCLA875 PO (05:00)
[2024-02-03] MEDS ORDERED: Amoxicillin/Clavulanate K 875 MG Tab PO ONE (05:00)
[2024-02-03] MEDS ORDERED: Acetaminophen 325 MG TABLET PO ONE (05:00)
== END 2024-02-03 05:20 | disposition home or self-care (01) ==
LOC: ER 01:44
DX: K04.7 Periapical abscess without sinus (principal); I25.2 Old myocardial infarction; J44.9 Chronic obstructive pulmonary disease, unspecified; F17.210 Nicotine dependence, cigarettes, uncomplicated; Z79.899 Other long term (current) drug therapy; Z79.52 Long term (current) use of systemic steroids; Z88.5 Allergy status to narcotic agent
CPT/HCPCS: 99282; A9270

== ENCOUNTER 2024-05-17 10:35 | Emergency (ER) | payer OTHER ==
[~2024-05-17] VITALS: Ht 165.1 cm; Wt 63.5 kg
[~2024-05-17 10:35] MED LIST changes: +AMOCLA875 PO
[2024-05-17 14:38] LABS: BASOPHILS ABSOLUTE AUTO 0.03 K/mm3 (0.00-0.23); BASOPHILS PERCENT AUTO 0 % (0-2); EOSINOPHILS ABSOLUTE AUTO 0.16 K/mm3 (0.00-0.68); EOSINOPHILS PERCENT AUTO 2 % (0-6); Hematocrit 41.2 % (33.0-51.0); Hemoglobin 13.8 g/dL (11.5-16.0); IMMATURE GRAN ABSOLUTE AUTO 0.02 K/mm3 (0.00-0.10); IMMATURE GRAN PERCENT AUTO 0 % (0-1); LYMPHOCYTES ABSOLUTE AUTO 1.52 K/mm3 (0.84-5.20); LYMPHOCYTES PERCENT AUTO 20 % (21-46); MONOCYTES PERCENT AUTO 10 % (4-13); Mean Corpuscular HGB 31.5 pg (26.0-34.0); Mean Corpuscular HGB Conc 33.5 g/dL (31.5-36.5); Mean Corpuscular Volume 94 fL (80-100); Mean Platelet Volume 9.4 fL (9.1-12.4); NEUTROPHILS ABSOLUTE AUTO 5.21 K/mm3 (1.96-9.15); NEUTROPHILS PERCENT AUTO 67 % (41-73); Platelet Count 333 K/mm3 (150-400); RDW Coefficient Variation 11.9 % (11.7-14.2); RDW Standard Deviation 41.1 fL (35.1-46.3); Red Blood Cell Count 4.38 M/mm3 (3.80-5.20); White Blood Cell Count 7.74 K/mm3 (4.00-11.30)
[2024-05-17 14:50] LABS: Albumin, Blood 3.9 g/dL (3.4-5.0); Bilirubin, Total 0.5 mg/dL (0.1-1.0); Bun/Creatinine Ratio 21.7 (12.0-20.0); Calcium, Blood 9.9 mg/dL (8.5-10.1); Creatinine, Blood 1.43 mg/dL (0.40-1.00); Globulin, Blood 4.1 g/dL (2.2-4.0); Potassium, Blood 3.7 mmol/L (3.5-5.5)
[2024-05-17] MEDS ORDERED: Ibuprofen 600 MG Tab PO ONE (14:50)
[2024-05-17] MEDS ORDERED: FentaNYL Citrate 50 MCG/ML 2 ML Injection IV ONE (15:45)
[2024-05-17] MEDS ORDERED: OxyCODONE HCL 5 MG TAB PO ONE (16:10)
[2024-05-17 17:11] VITALS: BP 132/72
== END 2024-05-17 17:12 | disposition home or self-care (01) ==
LOC: ER 10:35
PROVIDERS: Emergency Medicine
DX: S01.82XA Laceration with foreign body of other part of head, initial encounter (principal); S11.91XA Laceration without foreign body of unspecified part of neck, initial encounter; I25.2 Old myocardial infarction; I50.9 Heart failure, unspecified; I42.0 Dilated cardiomyopathy; J44.9 Chronic obstructive pulmonary disease, unspecified; F17.210 Nicotine dependence, cigarettes, uncomplicated; Z88.5 Allergy status to narcotic agent; Z79.02 Long term (current) use of antithrombotics/antiplatelets; Z79.899 Other long term (current) drug therapy; V44.5XXA Car driver injured in collision with heavy transport vehicle or bus in traffic accident, initial encounter
CPT/HCPCS: 70450; 71250; 72125; 74176; 80053; 85025; 99284-25; A9270